=== PATIENT | female | born 1995 | race African-American/Black ===

== ENCOUNTER 2017-03-23 21:49 | Emergency (ER) | payer BC ==
[2017-03-23] MEDS ORDERED: cefTRIAXone VIAL(*) 250 MG VIAL IM ONE (23:06)
[2017-03-23] MEDS ORDERED: Azithromycin TAB* 250 MG PO ONE (23:06)
[2017-03-23 23:18] LABS: UR Preg Internal Control QC Line Present
--- NOTE | 2017-03-23 23:54 | ED ---
Sudha Diaz Edward, scribed for Sadie Escalante MD on 03/23/17 at 2317 . GI/ HPI - HPI Summary HPI Summary: 21 y/o female presents to ED with concerns for Gonorrhea. Patient has had vaginal discharge and slight ABD pain for a couple of months now. Patient also states her periods have been "messed up" recently. Her boyfriend was tested positive for Gonorrhea yesterday. No PMHx and FHx of diabetes and HTN. Patient is a nonsmoker, and does not use EtOH or drugs. Patient is currently on her period. - History of Current Complaint Chief Complaint: EDGeneral Time Seen by Provider: 03/23/17 22:16 Stated Complaint: STD TESTING Hx Obtained From: Patient Onset/Duration: Started Weeks Ago - Months ago, Still Present Timing: Constant Pain Intensity: 0 Location of Pain: Suprapubic Associated Signs and Symptoms: Positive: Discharge - Vaginal, Other: - Period "messed up" - Allergy/Home Medications Allergies/Adverse Reactions: Allergies Allergy/AdvReac Type Severity Reaction Status Date / Time No Known Allergies Allergy Verified 08/29/16 10:31 PMH/Surg Hx/FS Hx/Imm Hx Previously Healthy: No Endocrine/Hematology History: Denies: Hx Diabetes, Hx Thyroid Disease Cardiovascular History: Denies: Hx Congestive Heart Failure, Hx Deep Vein Thrombosis, Hx Hypertension , Hx Myocardial Infarction, Hx Pacemaker/ICD Respiratory History: Reports: Hx Asthma - She does not take anything for this at this time. Denies: Hx Chronic Obstructive Pulmonary Disease (COPD), Hx Lung Cancer GI History: Denies: Hx Gall Bladder Disease, Hx Gastrointestinal Bleed, Hx Ulcer, Hx Urosepsis History: Denies: Hx Kidney Stones, Hx Renal Disease Sensory History: Reports: Hx Contacts or Glasses - reading Denies: Hx Hearing Aid Opthamlomology History: Reports: Hx Contacts or Glasses - reading Neurological History: Denies: Hx Dementia, Hx Migraine, Hx Seizures, Hx Transient Ischemic Attacks (TIA) Psychiatric History: Denies: Hx Anxiety, Hx Depression, Hx Schizophrenia, Hx Bipolar Disorder Infectious Disease History: No Infectious Disease History: Denies: Hx Hepatitis, Hx Human Immunodeficiency Virus (HIV), Traveled Outside the [place] in Last 30 Days - Family History Known Family History: Negative: Hypertension, Diabetes - Social History Lives: Alone Alcohol Use: Rare Substance Use Type: Reports: None Smoking Status (MU): Never Smoked Tobacco Have You Smoked in the Last Year: No Review of Systems Constitutional: Negative Eyes: Negative ENT: Negative Cardiovascular: Negative Respiratory: Negative Positive: Abdominal Pain Positive: discharge - Vaginal Musculoskeletal: Negative Skin: Negative Neurological: Negative Psychological: Normal All Other Systems Reviewed And Are Negative: Yes Physical Exam Triage Information Reviewed: Yes Vital Signs On Initial Exam: Initial Vitals Temp Pulse Resp BP Pulse Ox 97.8 F 77 16 124/64 99 03/23/17 21:52 03/23/17 21:52 03/23/17 21:52 03/23/17 21:52 03/23/17 21:52 Vital Signs Reviewed: Yes Appearance: Positive: Well-Appearing, No Pain Distress Skin: Positive: Warm, Skin Color Reflects Adequate Perfusion, Dry Eyes: Positive: EOMI, BUNNY ENT: Positive: Pharynx normal, TMs normal Neck: Positive: Supple, Nontender Respiratory/Lung Sounds: Positive: Clear to Auscultation, Breath Sounds Present. Negative: Rales, Rhonchi, Wheezes Cardiovascular: Positive: RRR, Other - No gallops. Negative: Murmur, Rub Abdomen Description: Positive: Soft, Other: - Mild suprapubic discomfort. No rebound. Negative: Distended, Guarding Bowel Sounds: Positive: Present Pelvic Exam: Positive: external exam normal, speculum exam normal, bimanual exam normal, no cerv. motion tender - mild bleeding from menses no purulence, blood Musculoskeletal: Positive: Strength/ROM Intact. Negative: Edema Left, Edema Right Neurological: Positive: Sensory/Motor Intact, Alert, Oriented to Person Place, Time, CN Intact II-III Psychiatric: Positive: Affect/Mood Appropriate Diagnostics - Vital Signs Vital Signs Temp Pulse Resp BP Pulse Ox 03/23/17 21:52 97.8 F 77 16 124/64 99 - Laboratory Lab Results: Lab Results 03/23/17 Range/Units 23:08 Urine Test Negative (Negative) Lab Statement: Any lab studies that have been ordered have been reviewed, and results considered in the medical decision making process. GIGU Course/Dx - Course Course Of Treatment: 21 yo female whose partner was treated for gonorrhea here for exam and meds, she did not want hiv testing but agreed to gc/chlamydia testing and treatment, pelvic exam normal - Diagnoses Provider Diagnoses: STI (sexually transmitted infection) Discharge - Discharge Plan Condition: Stable Disposition: HOME Patient Education Materials: Sexually Transmitted Diseases (ED) Referrals: Sera Resendez NP [Primary Care Provider] - 3 Days (Please follow up in 2-3 days) The documentation as recorded by the Sudha caputo Edward accurately reflects the service I personally performed and the decisions made by me, Sadie Escalnate MD.
[2017-03-23] MEDS ORDERED: Lidocaine 1% INJ* 10 MG/ML 30 ML SDV ONE (23:56)
[2017-03-24 01:16] VITALS: BP 125/60
--- NOTE | 2017-03-25 10:04 | PN ---
Progress Note - Progress Note Date of Service: 03/25/17 Note: Patient vaginal culture grew Gardnerella. called patient and is not having symptoms so will not treat. patient agrees with plan
== END 2017-03-24 00:30 | disposition home or self-care (01) ==
LOC: ED 21:49
DX: A64 Unspecified sexually transmitted disease (principal); R10.9 Unspecified abdominal pain
CPT/HCPCS: 81025; 87480; 87491; 87510; 87591; 87661; 96372; 99282; A9270-GY; J0696; J2001

== ENCOUNTER 2017-07-09 10:26 | Emergency (ER) | payer BC ==
[2017-07-09 11:10] VITALS: BP 119/69
--- NOTE | 2017-07-09 11:44 | UC ---
[facility] HPI - HPI Summary HPI Summary: Pain and swelling right lower gum worsening over the past 3-4 days unable to sleep last night due to the pain - History of Current Complaint Chief Complaint: EDDentalPain Stated Complaint: DENTAL PAIN Time Seen by Provider: 07/09/17 11:40 Hx Obtained From: Patient Hx Last Menstrual Period: 06/22/17 ?: No Onset/Duration: Gradual Onset, Lasting Days - 4-5, Worse Since - last night Severity: Moderate Pain Intensity: 8 Pain Scale Used: 0-10 Numeric Aggravating Factor(s): Nothing Alleviating Factor(s): Nothing Related History: Swelling - Allergies/Home Medications Allergies/Adverse Reactions: Allergies Allergy/AdvReac Type Severity Reaction Status Date / Time No Known Allergies Allergy Verified 08/29/16 10:31 PMH/Surg Hx/FS Hx/Imm Hx Previously Healthy: Yes Other History Of: Negative For: HIV, Hepatitis B, Hepatitis C - Surgical History Surgical History: None - Family History Known Family History: Positive: None Negative: Hypertension, Diabetes - Social History Occupation: Student Lives: With Family Alcohol Use: Rare Substance Use Type: None Smoking Status (MU): Never Smoked Tobacco Have You Smoked in the Last Year: No - Immunization History Most Recent Influenza Vaccination: 2010 Most Recent Tetanus Shot: 04/11/14 Most Recent Pneumonia Vaccination: never had Review of Systems Constitutional: Negative Skin: Negative Eyes: Negative ENT: Dental Pain Respiratory: Negative Cardiovascular: Negative Gastrointestinal: Negative Genitourinary: Negative Motor: Negative Neurovascular: Negative Musculoskeletal: Negative Neurological: Negative Psychological: Negative Is Patient Immunocompromised?: No All Other Systems Reviewed And Are Negative: Yes Physical Exam Triage Information Reviewed: Yes Appearance: Well-Appearing, Well-Nourished, Pain Distress Vital Signs: Initial Vital Signs Temp 99 F 07/09/17 11:07 Pulse 80 07/09/17 11:07 Resp 18 07/09/17 11:07 BP 119/69 07/09/17 11:07 Pulse Ox 99 07/09/17 11:07 Vital Signs Reviewed: Yes Eye Exam: Normal Eyes: Positive: Conjunctiva Clear ENT Exam: Normal ENT: Positive: Normal ENT inspection, Hearing grossly normal. Negative: Nasal congestion, Nasal drainage, Trismus, Muffled/hoarse voice Dental Exam: Normal Dental: Positive: Abscess @ - right lower posterior Neck exam: Normal Neck: Positive: Supple, Nontender Respiratory Exam: Normal Respiratory: Positive: Chest non-tender, No respiratory distress, No accessory muscle use Cardiovascular Exam: Normal Cardiovascular: Positive: RRR, Pulses Normal, Brisk Capillary Refill Musculoskeletal Exam: Normal Musculoskeletal: Positive: Strength Intact, ROM Intact, No Edema Neurological Exam: Normal Neurological: Positive: Alert, Muscle Tone Normal Psychological Exam: Normal Skin Exam: Normal Dental Complaint Course/Dx - Course Course Of Treatment: pain med, ice, amoxicillin, follow with dentist this week - Differential Dx/Diagnosis Differential Diagnosis/Dx: Dental Abscess, Dental Caries, Odontogenic Pain, Peridontic Disease Provider Diagnoses: right lower dental pain and swelling Discharge - Discharge Plan Condition: Stable Disposition: HOME Prescriptions: Amoxicillin PO (*) [Amoxicillin 500 MG CAP*] 500 mg PO TID #30 cap Hydrocodone-Acetaminophen [Hydrocodone/Acetaminophen 5-325 mg] 1 tab PO Q8H PRN #9 tab MDD 3 PRN Reason: pain Ibuprofen TAB* [Motrin TAB* 600 MG] 600 mg PO Q6H PRN #40 tab PRN Reason: pain Patient Education Materials: Dental Abscess (ED), Toothache (ED) Referrals: Sera Resendez NP [Primary Care Provider] - Additional Instructions: Follow with Dentist this week --
== END 2017-07-09 12:02 | disposition home or self-care (01) ==
LOC: ED 10:26
DX: K08.89 Other specified disorders of teeth and supporting structures (principal)
CPT/HCPCS: 99281

== ENCOUNTER 2018-12-29 17:09 | Emergency (ER) | payer BC ==
[2018-12-29 17:36] VITALS: BP 114/73
--- NOTE | 2018-12-29 19:24 | UC ---
Back Pain HPI - HPI Summary HPI Summary: 23 y/o female presents to the urgent care c/o Rt lower back pain for the past 2 days. Pt reports she does a lot of moving and lifting at work at times, but can' t recall any heavy lifting lately. Pt reports pain is worse and sharp w/ movement, intermittent, 7/10, better w/ sitting and worses w/ laying down. She took Advil PO last night to alleviate symptoms, but nothing today. Pt denies saddle anesthesia, urinary or fecal incontinence, urinary symptoms, fever, flank pain, vaginal discharge, SOB, chest pain, abdominal pain, numbness or tingling sensation over the lower extremities, Hx of STD's or trauma. LMP:2018 w/ regular menstrual cycles. - History of Current Complaint Chief Complaint: UCBackPain Stated Complaint: BACK PAIN Time Seen by Provider: 12/29/18 18:57 Hx Obtained From: Patient Hx Last Menstrual Period: 12/06/18 ?: No Onset/Duration: Gradual Onset, Lasting Days - 2 days, Still Present Timing: Intermittent Severity Initially: Mild Severity Currently: Moderate Pain Intensity: 7 Pain Scale Used: 0-10 Numeric Back Pain: Is Discrete @ - RT lower back Character: Sharp, Spasmodic Aggravating Factor(s): Movement, Lifting, Bending Alleviating Factor(s): Rest, OTC Meds Associated Signs And Symptoms: Positive: Negative. Negative: Swelling, Redness , Bruising, Fever, Weakness, Numbness, Tingling, Abdominal Pain, Flank Pain, Bladder Incontinence, Bowel Incontinence, Weight Loss, Pain with Weight Bearing - Risk Factors AAA Risk Factors: Negative TAD Risk Factors: Negative Cauda Equina Risk Factors: Negative Epidural Abscess Risk Factors: Negative - Allergies/Home Medications Allergies/Adverse Reactions: Allergies Allergy/AdvReac Type Severity Reaction Status Date / Time No Known Allergies Allergy Verified 12/29/18 17:36 PMH/Surg Hx/FS Hx/Imm Hx Previously Healthy: Yes Other GI/ History: pyelonephritis Other History Of: Negative For: HIV, Hepatitis B, Hepatitis C - Surgical History Surgical History: None - Family History Known Family History: Positive: None - Pt denies FMHX Negative: Hypertension, Diabetes - Social History Occupation: Employed Full-time Lives: With Family Alcohol Use: Rare Substance Use Type: None Smoking Status (MU): Never Smoked Tobacco Have You Smoked in the Last Year: No - Immunization History Most Recent Influenza Vaccination: 2010 Most Recent Tetanus Shot: 04/11/14 Most Recent Pneumonia Vaccination: never had Review of Systems All Other Systems Reviewed And Are Negative: Yes Constitutional: Positive: Negative Skin: Positive: Negative Eyes: Positive: Negative ENT: Positive: Negative Respiratory: Positive: Negative Cardiovascular: Positive: Negative Gastrointestinal: Positive: Negative Genitourinary: Positive: Negative Motor: Positive: Negative Neurovascular: Positive: Negative Musculoskeletal: Positive: Decreased ROM - Rt lower back, Other: - RT lower back pain Neurological: Positive: Negative Psychological: Positive: Negative Is Patient Immunocompromised?: No Physical Exam - Summary Physical Exam Summary: Vital Signs Reviewed: Yes Appearance: Well-Appearing, Well-Nourished, obese female sitting in the examining table w/o any apparent distress. Eyes: Positive: Conjunctiva Clear - PERRLA, EOMI. ENT: Positive: Normal ENT inspection, Hearing grossly normal, Pharynx normal, TMs normal, Uvula midline Neck: Positive: Supple, Nontender, No Lymphadenopathy Respiratory: Positive: Chest non-tender, Lungs clear, Normal breath sounds, No respiratory distress Cardiovascular: Positive: RRR, No Murmur, Pulses Normal, Brisk Capillary Refill Abdomen Description: Positive: Nontender, No Organomegaly, Soft. Negative: CVA Tenderness (R), CVA Tenderness (L) Bowel Sounds: Positive: Present Musculoskeletal: Positive: Strength Intact, BACK: Patient walked into the urgent care room with symmetric ambulation, No signs of limping, antalgic, able to bear weight. No signs of trauma, No masses palpated. No midline tenderness, RT paraspinal muscle tenderness at the level of L2-L4, No CVAT, no flank ecchymosis . No sacroiliac notch tenderness, No saddle anesthesia.ROM: limited due to pain, Straight Leg Raise: negative. Patellar reflexes: brisk, symmetric Muscle strength lower extremities. Dorsiflexion/ plantar flexion of ankles. Heel / toe walk. Lower extremities: Femoral, popliteal, posterior tibial, and dorsalis pedis pulses WNL. Pt refuse rectal exam Neurological: Positive: Alert, Muscle Tone Normal Psychological Exam: Normal Skin Exam: Normal Triage Information Reviewed: Yes Vital Signs: Initial Vital Signs Temp 98.7 F 12/29/18 17:32 Pulse 74 12/29/18 17:32 Resp 14 12/29/18 17:32 BP 114/73 12/29/18 17:32 Pulse Ox 99 12/29/18 17:32 Back Pain Course/Dx - Course Course Of Treatment: 23 y/o female presents to the urgent care c/o Rt lower back pain for the past 2 days. Pt reports she does a lot of moving and lifting at work at times, but can' t recall any heavy lifting lately. Pt reports pain is worse and sharp w/ movement, intermittent, 7/10, better w/ sitting and worses w/ laying down. She took Advil PO last night to alleviate symptoms, but nothing today. Pt denies saddle anesthesia, urinary or fecal incontinence, urinary symptoms, fever, flank pain, vaginal discharge, SOB, chest pain, abdominal pain, numbness or tingling sensation over the lower extremities, Hx of STD's or trauma. LMP:2018 w/ regular menstrual cycles. Hx obtained. Pt w/No midline tenderness, RT paraspinal muscle tenderness at the level of L2-L4, No CVAT on examination. UA:1 + leukoesteraces, Pt w/ possible lower adrianne strain and muscle spasm. Pt Rx Ibuprofen PO, flexeril PO and given a PT referral. Patient was instructed to the f/u with her PCP or orthopedic in 1 week if symptoms do not improve or worsen. Patient understands and agrees. Patient is able to ambulate freely w/o aid or limp. Plan of care was discussed with the patient and patient understands and agrees. All questions were answered at patient satisfaction. Pt left clinic hemodynamically stable. - Differential Dx/Diagnosis Differential Diagnosis/HQI/PQRI: Fracture, Herniated Disc, Renal Colic, Strain, Sprain, Other - UTI Provider Diagnosis: Low back strain, Back muscle spasm Discharge - Sign-Out/Discharge Documenting (check all that apply): Patient Departure - d/c home All imaging exams completed and their final reports reviewed: No Studies - Discharge Plan Condition: Stable Disposition: HOME Prescriptions: Cyclobenzaprine TAB* [Flexeril 10 MG TAB*] 10 mg PO TID PRN #21 tab PRN Reason: Spasms - Muscle Ibuprofen TAB* [Motrin TAB* 800 MG] 800 mg PO Q6H PRN #30 tab PRN Reason: back pain Patient Education Materials: Low Back Strain (ED), Muscle Spasm (ED) Forms: *Work Release Referrals: Sera Resendez NP [Primary Care Provider] - 3 Days [facility] [Provider Group] - 1 Week Additional Instructions: 1- Please take Ibuprofen PO q6-8hrs prn as directed after meals for pain. 2- Take Flexeril PO as directed for muscle spasm. Please do not drive while taking the medication. 3- Wear a back support. Avoid strenuous exercise of heavy lifting. 4- Please follow up with Orthopedic Dr or your PCP in 1 week if not improvement of symptoms, for further management. - Billing Disposition and Condition Condition: STABLE Disposition: Home
[2018-12-29] MEDS: Ibuprofen TAB* 400 MG PO ONE (19:35)
== END 2018-12-29 19:40 | disposition home or self-care (01) ==
LOC: UCEAST 17:09
DX: S39.012A Strain of muscle, fascia and tendon of lower back, initial encounter (principal); M62.830 Muscle spasm of back; X58.XXXA Exposure to other specified factors, initial encounter; Y92.9 Unspecified place or not applicable
CPT/HCPCS: 81003; 87086; 99212; A9270-GY; G0463

== ENCOUNTER 2019-06-01 17:03 | Emergency (ER) | payer BC ==
--- NOTE | 2019-06-01 20:49 | ED ---
Headache - HPI Summary HPI Summary: Pt is a 23 y/o F presenting to the ED with a chief complaint of a headache. She states around 1515, she was putting in a new faucet when she suddenly experienced blurred vision. She took approx. an hour nap, and when she woke up she had a KAT, eye pain, and noted that her L arm, bottom lip, and tongue were tingling/numb. Her male friend also notes that he was talking about seeing cars at the mall, but she then began talking about unrelated things such as homeless people in the mall. She did not have slurred speech, and her head currently still hurts. - History Of Current Complaint Chief Complaint: EDHeadache Stated Complaint: HEADACHE/DIZZINESS PER PT Time Seen by Provider: 06/01/19 20:32 Hx Obtained From: Patient Hx Last Menstrual Period: 12/06/18 Onset/Duration: Sudden Onset, Started hours ago, Still Present Initially Headache Was: Mild Currently Pain Is: Moderate Timing: Constant, Hours Character: Migraine Location of Headache: Diffuse Aggravating Factor: Nothing Allevating Factors: Nothing Associated Signs And Symptoms: Visual Changes, Other (Noted In Comments) - numbness/tingling in L arm, lips, tongue - Allergies/Home Medications Allergies/Adverse Reactions: Allergies Allergy/AdvReac Type Severity Reaction Status Date / Time No Known Allergies Allergy Verified 12/29/18 17:36 Home Medications: Home Medications Ibuprofen TAB* [Motrin TAB* 800 MG] 800 mg PO Q6H PRN 06/01/19 [History Confirmed 06/01/19] PMH/Surg Hx/FS Hx/Imm Hx Previously Healthy: Yes Endocrine/Hematology History: Denies: Hx Diabetes, Hx Thyroid Disease Cardiovascular History: Denies: Hx Congestive Heart Failure, Hx Deep Vein Thrombosis, Hx Hypertension , Hx Myocardial Infarction, Hx Pacemaker/ICD Respiratory History: Reports: Hx Asthma - She does not take anything for this at this time. Denies: Hx Chronic Obstructive Pulmonary Disease (COPD), Hx Lung Cancer GI History: Denies: Hx Gall Bladder Disease, Hx Gastrointestinal Bleed, Hx Ulcer, Hx Urosepsis History: Denies: Hx Kidney Stones, Hx Renal Disease Sensory History: Reports: Hx Contacts or Glasses - reading Denies: Hx Hearing Aid Opthamlomology History: Reports: Hx Contacts or Glasses - reading Neurological History: Denies: Hx Dementia, Hx Migraine, Hx Seizures, Hx Transient Ischemic Attacks (TIA) Psychiatric History: Denies: Hx Anxiety, Hx Depression, Hx Schizophrenia, Hx Bipolar Disorder Infectious Disease History: No Infectious Disease History: Denies: Hx Hepatitis, Hx Human Immunodeficiency Virus (HIV), Traveled Outside the [place] in Last 30 Days - Family History Known Family History: Negative: Hypertension, Diabetes - Social History Alcohol Use: Rare Hx Substance Use: No Substance Use Type: Reports: None Hx Tobacco Use: No Smoking Status (MU): Never Smoked Tobacco Have You Smoked in the Last Year: No Review of Systems Positive: Blurred Vision, Other - eye pain Positive: Headache, Paresthesia. Negative: Slurred Speech All Other Systems Reviewed And Are Negative: Yes Physical Exam - Summary Physical Exam Summary: Appearance: Well-appearing, Well-nourished, lying in bed comfortably Skin: Warm, dry, no obvious rash Eyes: sclera anicteric, no conjunctival pallor ENT: mucous membranes moist, pharynx appears normal Neck: Supple, nontender Respiratory: Clear to auscultation, no signs of respiratory distress Cardiovascular: Normal S1, S2. No murmurs. Normal distal pulses in tibial and radial bilaterally. Abdomen: Soft, nontender, normal active bowel sounds present Musculoskeletal: Normal, Strength/ROM Intact, Motor function in all 4 extremities is normal and symmetric. There is no rigidity or tremor noted. Neurological: A&Ox3, awake and alert, mentation is normal, speech is fluent and appropriate, Level of consciousness nml. The patient is alert and oriented. Cranial nerves are grossly intact. Gaze is conjugate and without nystagmus. Peripheral vision is intact to confrontation. There are no gross sensory abnormalities to light touch. There is no truncal or fine motor ataxia. Gait is normal. Psychiatric: affect is normal, does not appear anxious or depressed Triage Information Reviewed: Yes Vital Signs On Initial Exam: Initial Vitals Temp Pulse Resp BP Pulse Ox 98.7 F 77 18 129/88 99 06/01/19 17:17 06/01/19 17:17 06/01/19 17:17 06/01/19 17:17 06/01/19 17:17 Vital Signs Reviewed: Yes Diagnostics - Vital Signs Vital Signs Temp Pulse Resp BP Pulse Ox 06/01/19 18:33 97.9 F 70 18 117/75 100 09/04/19 17:17 98.7 F 77 18 129/88 99 - Laboratory Lab Statement: Any lab studies that have been ordered have been reviewed, and results considered in the medical decision making process. Headache Course/Dx - Course Course Of Treatment: Pt is a 23 y/o F presenting to the ED with a chief complaint of a headache initially onset with blurred vision at 1515. She reports KAT, numbness/tingling in her L arm, bottom lip, and tongue, and eye pain. She denies slurred speech. She notes that she has had headaches similar to this in the past that happen approximately 3x/yr. She has not seen a neurologist in the past. Per her past visits, a brain CT and head CTA were both negative. Due to this happening in the past without further issues, as well as previous negative scans, I am not concerned for a neurological issue. The story of her present illness sounds much more like a complex migraine. The pt's extended neurological exam is normal. She will be d/c'ed with dx of complex migraines. - Diagnoses Provider Diagnoses: Complicated migraine Discharge ED - Sign-Out/Discharge Documenting (check all that apply): Patient Departure Patient Received Moderate/Deep Sedation with Procedure: No - Discharge Plan Condition: Stable Disposition: HOME Patient Education Materials: Migraine Headache (ED) Referrals: Yong Sheridan MD [Medical Doctor] - Sera Resendez NP [Primary Care Provider] - Additional Instructions: I think an evaluation by a neurologist would be appropriate, you can contact the office listed and make an appt at your convenience. - Billing Disposition and Condition Condition: STABLE Disposition: Home - Attestation Statements Document Initiated by Monique: Yes Documenting Scribe: Vania Berg Provider For Whom Monique is Documenting (Include Credential): Mychal Morse MD. Scribe Attestation: I, Vania Berg, colleened for Mychal Morse MD. on 06/04/19 at 0223. Scribe Documentation Reviewed: Yes Provider Attestation: The documentation as recorded by the scribe, Vania Berg accurately reflects the service I personally performed and the decisions made by me, Mychal Morse MD. Status of Scribe Document: Viewed
[2019-06-01 21:15] VITALS: BP 113/76
== END 2019-06-01 21:15 | disposition home or self-care (01) ==
LOC: ED 17:03
DX: G43.109 Migraine with aura, not intractable, without status migrainosus (principal); J45.909 Unspecified asthma, uncomplicated
CPT/HCPCS: 99283

== ENCOUNTER 2020-09-11 07:45 | Inpatient (IN) ==
[2020-09-11] MEDS ORDERED: Buffered Lidocaine 1% SYRIN 1 ml INTRADERM ONE (08:08)
[2020-09-11] MEDS ORDERED: Lactated Ringers 1000 ml BAG 1,000 ML IV ONE (08:08)
[2020-09-11] MEDS ORDERED: Oxytocin 10 UNITS/ML 1 ML VIAL IM ONE (08:34)
[2020-09-11] MEDS ORDERED: Witch Hazel PAD JAR TOPICAL PRN (08:34)
[2020-09-11] MEDS ORDERED: Lactated Ringers 1000 ml BAG 1,000 ML IV SCH (09:00)
[2020-09-11 11:47] LABS: Urine Benzodiazepine Screen None Detected (None Detect); Urine Cannabinoids Screen None Detected (None Detect); Urine Opiates Screen None Detected (None Detect)
[2020-09-12 07:22] LABS: ABS Basophils 0.1 10^3/ul (0-0.2); ABS Eosinophils 0.2 10^3/ul (0-0.6); ABS Lymphocytes 2.1 10^3/ul (1.0-4.8); ABS Monocytes 0.8 10^3/ul (0-0.8); ABS Neutrophils 8.7 10^3/ul (1.5-7.7); Eosinophil % 1.9 %; Hematocrit 35 % (35-47); Hemoglobin 11.3 g/dL (12.0-16.0); Lymphocyte % 17.9 %; Mean Corpuscular HGB Conc 32 g/dL (31-36); Mean Corpuscular Hemoglobin 27 pg (27-31); Mean Corpuscular Volume 84 fL (80-97); Mean Platelet Volume 9.5 fL (7.4-10.4); Platelet Count 219 10^3/uL (150-450); Red Blood Count 4.15 10^6 /uL (3.70-4.87); Red Cell Distribution Width 15 % (10-15); White Blood Count 11.9 10^3/uL (3.5-10.8)
[2020-09-12 08:02] VITALS: BP 111/70
== END 2020-09-12 13:45 | disposition home or self-care (01) | DRG 560 ==
LOC: MCHOBOUT 07:45 → MCHOB 07:50
PROVIDERS: ADMIT Midwife; ATTEND Midwife